=== PATIENT | female | born 1980 | race African-American/Black ===

== ENCOUNTER 2018-05-17 19:59 | Emergency (ER) | payer OTHER ==
[~2018-05-17] VITALS: Ht 167.6 cm; Wt 83.9 kg
[~2018-05-17 19:59] MED LIST: BACTRIM DS TAB1 EACH PO; ERRIN0.35 MG PO
[2018-05-17 20:30] LABS: URINE BILIRUBIN NEGATIVE (Negative); URINE BLOOD TRACE (Negative); URINE CLARITY CLEAR; URINE COLOR YELLOW; URINE GLUCOSE-RANDOM* NEGATIVE (Negative); URINE KETONES NEGATIVE (Negative); URINE LEUKOCYTES-REFLEX NEGATIVE (Negative); URINE NITRITE-REFLEX NEGATIVE (Negative); URINE PROTEIN (DIPSTICK) NEGATIVE (Negative)
[2018-05-17 22:27] LABS: HEMOGLOBIN 13.7 gm/dL (12.0-15.0); MCH 29.2 pg (26.0-34.0); MCHC 33.4 g/dL (28.0-37.0); MCV 87.5 fL (80.0-100.0); RBC 4.69 mil/uL (4.20-5.00); WBC 7.5 thou/uL (4.0-11.0)
[2018-05-17 22:34] LABS: POTASSIUM 3.6 mmol/L (3.5-5.1)
[2018-05-17 22:40] LABS: ALBUMIN 3.5 g/dL (3.4-5.0); TOTAL BILIRUBIN 0.2 mg/dL (<0.1-1.0); TOTAL PROTEIN 8.1 g/dL (6.4-8.2)
[2018-05-17] MEDS ORDERED: NORFLEX100 MG PO (22:48)
[2018-05-17] MEDS ORDERED: TRAMADOL 50 MG50 MG PO (22:48)
[2018-05-17] MEDS ORDERED: NAPROSYN500 MG PO (22:48)
[2018-05-17 23:00] VITALS: BP 110/77
== END 2018-05-17 23:00 | disposition home or self-care (01) ==
LOC: ER 19:59
PROVIDERS: Emergency Medicine
DX: M54.5 Low back pain (principal); M54.6 Pain in thoracic spine; N94.10 Unspecified dyspareunia; J45.909 Unspecified asthma, uncomplicated; Z87.42 Personal history of other diseases of the female genital tract